=== PATIENT | female | born 1990 | race Caucasian/White ===

== ENCOUNTER → 2019-01-27 | Outpatient (REF) | payer OTHER ==
[2019-01-27 16:02] LABS: BASO % 0.6 % (0.0-1.0); EOS # 0.2 10^3/uL (0.0-0.50); EOS % 3.8 % (0.0-3.0); HEMATOCRIT 43.3 % (36.0-47.0); HEMOGLOBIN 14.5 g/dl (12.0-15.5); LYMPH # 1.8 10^3/uL (1.5-6.5); LYMPH % 36.3 % (24.0-44.0); MEAN CORPUSCULAR HEMOGLOBIN 29.4 pg (27.0-33.0); MEAN CORPUSCULAR HGB CONC 33.5 g/dl (32.0-36.5); MEAN CORPUSCULAR VOLUME 87.8 fl (80.0-96.0); MONO # 0.4 10^3/uL (0.0-0.8); MONO % 7.6 % (0.0-5.0); NEUTROPHILS # 2.6 10^3/uL (1.8-7.7); NEUTROPHILS % 51.3 % (36.0-66.0); PLATELET COUNT, AUTOMATED 287 10^3/uL (150-450); RED BLOOD COUNT 4.93 10^6/uL (4.00-5.40)
[2019-01-27 17:03] LABS: BLOOD UREA NITROGEN 9 MG/DL (7-18); CALCIUM LEVEL 9.1 MG/DL (8.5-10.1); CARBON DIOXIDE LEVEL 28 MEQ/L (21-32); CHLORIDE LEVEL 108 MEQ/L (98-107); CREATININE FOR GFR 0.75 MG/DL (0.55-1.30); FOLATE 16.5 NG/ML (>5.4); GLOMERULAR FILTRATION RATE > 60.0 (>60); GLUCOSE, FASTING 82 MG/DL (70-100); IRON (FE) 97 UG/DL (50-170); MAGNESIUM LEVEL 2.2 MG/DL (1.8-2.4); PERCENT SATURATION 27.7 % (13.2-45.0); POTASSIUM SERUM 4.7 MEQ/L (3.5-5.1); SODIUM LEVEL 140 MEQ/L (136-145); THYROID STIMULATING HORMONE 0.872 uIU/ML (0.358-3.740); TOTAL IRON BINDING CAPACITY 350 UG/DL (250-450); VITAMIN B12 LEVEL 574 PG/ML (247-911)
== END ==
LOC: M LABDRAW1 12:15
PROVIDERS: ATTEND Physician Assistant Medical
DX: R42 Dizziness and giddiness (principal)

== ENCOUNTER → 2019-02-12 | Outpatient (REF) | payer OTHER ==
[2019-02-15 15:06] LABS: HPV HYBRID CAPTURE II Negative (Negative)
== END ==
LOC: M LAB REF 18:43
PROVIDERS: ATTEND Physician Assistant Medical
DX: N93.0 Postcoital and contact bleeding (principal)
CPT/HCPCS: 87624; G0123

== ENCOUNTER → 2019-04-07 | Outpatient (REF) | payer OTHER ==
[2019-04-07 13:26] LABS: FOLLICLE STIMULATING HORMONE 7.8 mIU/mL; LUTEINIZING HORMONE 14.2 mIU/mL; PROGESTERONE 0.27 NG/ML; PROLACTIN 6.2 NG/ML
== END ==
LOC: M LABDRAW1 12:25
PROVIDERS: ATTEND Obstetrics & Gynecology
DX: N92.6 Irregular menstruation, unspecified (principal)

== ENCOUNTER 2019-04-25 08:04 | Emergency (ER) | payer OTHER ==
[~2019-04-25] VITALS: Ht 10.2 cm; Wt 68.4 kg
[2019-04-25 08:04] VITALS: BP 143/80
[2019-04-25 08:56] LABS: HCG, SERUM QUALITATIVE NEGATIVE (NEGATIVE)
[2019-04-25 09:00] LABS: BASO % 0.5 % (0.0-1.0); EOS # 0.1 10^3/uL (0.0-0.5); HEMATOCRIT 40.9 % (36.0-47.0); HEMOGLOBIN 13.9 g/dl (12.0-15.5); LYMPH # 1.5 10^3/uL (1.5-5.0); LYMPH % 18.2 % (24.0-44.0); MEAN CORPUSCULAR HEMOGLOBIN 29.4 pg (27.0-33.0); MEAN CORPUSCULAR VOLUME 86.5 fl (80.0-96.0); MONO # 0.7 10^3/uL (0.0-0.8); MONO % 8.4 % (0.0-5.0); NEUTROPHILS # 5.8 10^3/uL (1.5-8.5); NEUTROPHILS % 71.7 % (36.0-66.0); PLATELET COUNT, AUTOMATED 268 10^3/uL (150-450); RED BLOOD COUNT 4.73 10^6/uL (4.00-5.40); WHITE BLOOD COUNT 8.1 10^3/uL (4.0-10.0)
[2019-04-25 09:10] LABS: BLOOD UREA NITROGEN 12 MG/DL (7-18); CALCIUM LEVEL 8.8 MG/DL (8.5-10.1); CARBON DIOXIDE LEVEL 25 MEQ/L (21-32); CHLORIDE LEVEL 108 MEQ/L (98-107); CREATININE FOR GFR 1.17 MG/DL (0.55-1.30); GLOMERULAR FILTRATION RATE 58.6 (>60); GLUCOSE, FASTING 89 MG/DL (70-100); POTASSIUM SERUM 4.1 MEQ/L (3.5-5.1); SODIUM LEVEL 139 MEQ/L (136-145)
--- NOTE | 2019-04-25 09:35 | REP ---
CT brain: 04/25/2019. Indication: Dizziness. Diplopia. Comparison: None. Technique: Unenhanced axial CT images of the brain were obtained from skull base to vertex. Findings: There is no acute intracranial hemorrhage, acute cortical infarction, mass effect, hydrocephalus or significant fluid within the visualized paranasal sinuses/mastoid air cells. Impression: No acute intracranial process. Electronically Signed by Sam Rhodes DO 04/25/2019 09:27 A
--- NOTE | 2019-04-25 13:39 | REP ---
MRI brain: 04/25/2019. Indication: Dizziness. Diplopia. Comparison: No previous MRI studies are available for direct comparison. Technique: Multiplanar short and long TR sequences of the brain were performed without IV Gadolinium. Findings: There are no areas of restricted diffusion. There is no intracranial mass effect, hydrocephalus or significant hemorrhage. No signal abnormalities are present within the brainstem or brain parenchyma. The large intracranial flow voids are unremarkable. The midline structures, and craniocervical junction are unremarkable as well. Impression: No acute intracranial process. Unremarkable brain. Electronically Signed by Sam Rhodes DO 04/25/2019 01:30 P
== END 2019-04-25 14:20 | disposition home or self-care (01) ==
LOC: M ED 08:04
DX: H35.89 Other specified retinal disorders (principal); R29.818 Other symptoms and signs involving the nervous system

== ENCOUNTER → 2019-05-13 | Outpatient (REF) | payer OTHER ==
[2019-05-13 16:44] LABS: BASO # 0.1 10^3/uL (0.0-0.2); BASO % 1.1 % (0.0-1.0); EOS # 0.1 10^3/uL (0.0-0.5); HEMATOCRIT 43.7 % (36.0-47.0); HEMOGLOBIN 14.3 g/dl (12.0-15.5); LYMPH # 1.7 10^3/uL (1.5-5.0); LYMPH % 26.2 % (24.0-44.0); MEAN CORPUSCULAR HEMOGLOBIN 28.8 pg (27.0-33.0); MEAN CORPUSCULAR HGB CONC 32.7 g/dl (32.0-36.5); MEAN CORPUSCULAR VOLUME 88.1 fl (80.0-96.0); MONO # 0.5 10^3/uL (0.0-0.8); MONO % 7.2 % (0.0-5.0); NEUTROPHILS # 4.1 10^3/uL (1.5-8.5); NEUTROPHILS % 62.9 % (36.0-66.0); PLATELET COUNT, AUTOMATED 340 10^3/uL (150-450); RED BLOOD COUNT 4.96 10^6/uL (4.00-5.40); WHITE BLOOD COUNT 6.6 10^3/uL (4.0-10.0)
[2019-05-13 16:56] LABS: ALBUMIN 4.1 GM/DL (3.2-5.2); ALT/SGPT 23 U/L (12-78); BILIRUBIN,TOTAL 0.4 MG/DL (0.2-1.0); BLOOD UREA NITROGEN 14 MG/DL (7-18); CARBON DIOXIDE LEVEL 29 MEQ/L (21-32); CHLORIDE LEVEL 108 MEQ/L (98-107); CREATININE FOR GFR 0.97 MG/DL (0.55-1.30); GLOMERULAR FILTRATION RATE > 60.0 (>60); GLUCOSE, FASTING 94 MG/DL (70-100); POTASSIUM SERUM 4.5 MEQ/L (3.5-5.1); RHEUMATOID FACTOR QUANT < 10.0 IU/ML (<15.0); SODIUM LEVEL 140 MEQ/L (136-145)
[2019-05-13 16:57] LABS: TOTAL 25(OH) VITAMIN D 32.5 NG/ML (30.0-100.0)
[2019-05-13 19:28] LABS: ERYTHROCYTE SEDIMENTATION RATE 1 mm/hr (0-20)
[2019-05-15 14:08] LABS: ANTINUCLEAR ANTIBODIES DIRECT Negative (Negative)
== END ==
LOC: M LABDRAW1 15:47
PROVIDERS: ATTEND Psychiatry & Neurology Neurology
DX: R51 Headache (principal); R42 Dizziness and giddiness

== ENCOUNTER → 2019-07-29 | Outpatient (REF) | payer OTHER ==
[2019-07-29 19:01] LABS: FREE T4 0.91 NG/DL (0.76-1.46); THYROID STIMULATING HORMONE 0.95 uIU/ML (0.358-3.740)
[2019-07-30 12:00] LABS: THYROID PEROXIDASE ANTIBODY 332.9 U/ML (<60.0)
[2019-07-30 12:02] LABS: THYROGLOBULIN ANTIBODY 412.6 U/ML (<60.0)
== END ==
LOC: M LABDRAW1 15:24
PROVIDERS: ATTEND Nurse Practitioner Family
DX: E04.8 Other specified nontoxic goiter (principal)

== ENCOUNTER → 2019-09-30 | Outpatient (CLI) | payer OTHER ==
[2019-09-30 17:45] LABS: BASO # 0.1 10^3/uL (0.0-0.2); BASO % 1.2 % (0.0-1.0); EOS % 17.4 % (0.0-3.0); HEMATOCRIT 42.2 % (36.0-47.0); HEMOGLOBIN 13.9 g/dl (12.0-15.5); LYMPH # 2.5 10^3/uL (1.5-5.0); LYMPH % 42.5 % (24.0-44.0); MEAN CORPUSCULAR HEMOGLOBIN 28.2 pg (27.0-33.0); MEAN CORPUSCULAR HGB CONC 32.9 g/dl (32.0-36.5); MEAN CORPUSCULAR VOLUME 85.6 fl (80.0-96.0); MONO # 0.5 10^3/uL (0.0-0.8); MONO % 8.8 % (0.0-5.0); NEUTROPHILS # 1.8 10^3/uL (1.5-8.5); NEUTROPHILS % 29.9 % (36.0-66.0); PLATELET COUNT, AUTOMATED 282 10^3/uL (150-450); RED BLOOD COUNT 4.93 10^6/uL (4.00-5.40); WHITE BLOOD COUNT 5.9 10^3/uL (4.0-10.0)
[2019-09-30 17:51] LABS: BLOOD UREA NITROGEN 10 MG/DL (7-18); CARBON DIOXIDE LEVEL 27 MEQ/L (21-32); CHLORIDE LEVEL 107 MEQ/L (98-107); CREATININE FOR GFR 1.02 MG/DL (0.55-1.30); GLOMERULAR FILTRATION RATE > 60.0 (>60); GLUCOSE, FASTING 86 MG/DL (70-100); SODIUM LEVEL 141 MEQ/L (136-145)
== END ==
LOC: M WUC 11:25
PROVIDERS: ATTEND Nurse Practitioner Family
DX: R19.7 Diarrhea, unspecified (principal)

== ENCOUNTER → 2019-10-01 | Outpatient (REF) | payer OTHER | LOC: M LAB REF 16:33 | PROVIDERS: ATTEND Nurse Practitioner Family | DX: R19.7 Diarrhea, unspecified (principal) ==

== ENCOUNTER → 2019-10-20 | Outpatient (CLI) | payer OTHER ==
[~2019-10-20] MED LIST: ALBU8.5H INH; BUPR300T92 PO; FAMO20TA5 PO; MECL1TAB31 PO
--- NOTE | 2019-10-20 12:28 | REP ---
Chest x-ray: Two views. History: Shortness of breath . Comparison study: No comparison study . Findings: The lungs are well inflated and free of infiltrate. The pleural angles are sharp. The heart size is normal. Pulmonary vasculature is not increased. No significant bony abnormality is seen. Impression: Negative chest x-ray. Electronically Signed by Jae Mclaughlin MD 10/20/2019 12:20 P
[2019-10-20 12:46] LABS: BASO % 0.5 % (0.0-1.0); EOS # 0.2 10^3/uL (0.0-0.5); EOS % 3.6 % (0.0-3.0); HEMATOCRIT 40.7 % (36.0-47.0); HEMOGLOBIN 13.7 g/dl (12.0-15.5); LYMPH % 34.6 % (24.0-44.0); MEAN CORPUSCULAR HEMOGLOBIN 28.5 pg (27.0-33.0); MEAN CORPUSCULAR HGB CONC 33.7 g/dl (32.0-36.5); MEAN CORPUSCULAR VOLUME 84.8 fl (80.0-96.0); MONO # 0.4 10^3/uL (0.0-0.8); MONO % 7.4 % (0.0-5.0); NEUTROPHILS # 3.1 10^3/uL (1.5-8.5); NEUTROPHILS % 53.6 % (36.0-66.0); PLATELET COUNT, AUTOMATED 295 10^3/uL (150-450); WHITE BLOOD COUNT 5.8 10^3/uL (4.0-10.0)
[2019-10-20 13:09] LABS: ALBUMIN 3.9 GM/DL (3.2-5.2); ALT/SGPT 16 U/L (12-78); BILIRUBIN,TOTAL 0.5 MG/DL (0.2-1.0); BLOOD UREA NITROGEN 5 MG/DL (7-18); CALCIUM LEVEL 8.4 MG/DL (8.5-10.1); CARBON DIOXIDE LEVEL 26 MEQ/L (21-32); CHLORIDE LEVEL 109 MEQ/L (98-107); CREATININE FOR GFR 0.83 MG/DL (0.55-1.30); GLOMERULAR FILTRATION RATE > 60.0 (>60); GLUCOSE, FASTING 87 MG/DL (70-100); POTASSIUM SERUM 3.9 MEQ/L (3.5-5.1); SODIUM LEVEL 142 MEQ/L (136-145); TOTAL PROTEIN 6.9 GM/DL (6.4-8.2)
== END ==
LOC: M WUC 11:19
PROVIDERS: ATTEND Nurse Practitioner Family
DX: R06.02 Shortness of breath (principal)

== ENCOUNTER 2019-10-24 13:11 | Emergency (ER) | payer OTHER ==
[~2019-10-24] VITALS: Ht 162.6 cm; Wt 68.2 kg
[2019-10-24] MEDS ORDERED: MECLIZINE 25 MG TABLET PO ONE (13:30)
[2019-10-24] MEDS ORDERED: BUPR300T92 PO (14:02)
[2019-10-24] MEDS ORDERED: ALBU8.5H INH (14:02)
[2019-10-24] MEDS ORDERED: FAMO20TA5 PO (14:02)
[2019-10-24 14:13] LABS: HEMATOCRIT 38.3 % (36.0-47.0); HEMOGLOBIN 13.2 g/dl (12.0-15.5); MEAN CORPUSCULAR HEMOGLOBIN 28.6 pg (27.0-33.0); MEAN CORPUSCULAR HGB CONC 34.5 g/dl (32.0-36.5); MEAN CORPUSCULAR VOLUME 82.9 fl (80.0-96.0); PLATELET COUNT, AUTOMATED 269 10^3/uL (150-450); RED BLOOD COUNT 4.62 10^6/uL (4.00-5.40); WHITE BLOOD COUNT 8.1 10^3/uL (4.0-10.0)
[2019-10-24 14:41] LABS: BLOOD UREA NITROGEN 6 MG/DL (7-18); CALCIUM LEVEL 8.6 MG/DL (8.5-10.1); CARBON DIOXIDE LEVEL 24 MEQ/L (21-32); CHLORIDE LEVEL 109 MEQ/L (98-107); CREATININE FOR GFR 0.78 MG/DL (0.55-1.30); GLOMERULAR FILTRATION RATE > 60.0 (>60); GLUCOSE, FASTING 110 MG/DL (70-100); POTASSIUM SERUM 4.3 MEQ/L (3.5-5.1); SODIUM LEVEL 137 MEQ/L (136-145)
[2019-10-24 14:48] LABS: HCG, SERUM QUALITATIVE NEGATIVE (NEGATIVE)
[2019-10-24 15:00] VITALS: BP 130/76
[2019-10-24] MEDS ORDERED: MECL1TAB31 PO (15:00)
== END 2019-10-24 15:10 | disposition home or self-care (01) ==
LOC: EDBD 13:11 → M ED 13:11 → EDSEX 13:11 → M ED 15:10
DX: R42 Dizziness and giddiness (principal)

== ENCOUNTER → 2019-12-04 | Outpatient (CLI) | payer OTHER | LOC: M LAB 12:43 | PROVIDERS: ATTEND Internal Medicine Gastroenterology | DX: R19.7 Diarrhea, unspecified (principal) ==

== ENCOUNTER → 2019-12-10 | Outpatient (REF) | payer OTHER ==
[2019-12-16 20:07] LABS: CALPROTECTIN STOOL <16 ug/g (0-120); PANCREATIC ELASTASE STOOL 494 (>200)
== END ==
LOC: M LAB REF 11:26
PROVIDERS: ATTEND Internal Medicine Gastroenterology
DX: R19.7 Diarrhea, unspecified (principal)

== ENCOUNTER → 2019-12-18 | Outpatient (CLI) | payer OTHER ==
[~2019-12-18] MED LIST changes: +E-Z-GAS II EFFERVESCENT PACKET (SODIUM BICARB./CITRIC ACID/SIMETHICONE) As Ordered ONE; +E-Z-HD 98% w/w 340GM SUSP BTL As Ordered ONE; +E-Z-PAQUE 96% w/w SUSP 176GM BTL As Ordered ONE
--- NOTE | 2019-12-22 10:08 | REP ---
Examination Requested: SBFT Reason For Exam: Diarrhea Small Bowel Follow Through The procedure was performed by SARBJIT Arreola, under the direct supervision of Dr. Celaya. The images were reviewed with Dr. Celaya. The hospice entrance attendant film shows no organomegaly or pathological masses. The intestinal gas pattern appears normal. The barium was administered and the barium column was followed through the small bowel to the level of the terminal ileum. Small bowel transit time was approximately 20 minutes. During fluoroscopy gentle palpation shows all loops are freely mobile and pliable. There are no fixed or angulated loops. The small bowel mucosal pattern is normal in course and caliber. There is no transition to suggest a partial small-bowel obstruction. Spot filming of the terminal ileum shows it to be unremarkable. The appendix is visualized. Impression: 1. Small bowel transit time of approximately 20 minutes, otherwise unremarkable. 0.7 minutes of fluoroscopy time was utilized for this procedure. Some fluoroscopic images are performed with last image hold technology. These images require no additional radiation. Reviewed by SARBJIT Robison 12/18/2019 03:39 P Electronically Signed by Diego Celaya MD 12/22/2019 09:59 A
== END ==
LOC: M RAD 08:30
PROVIDERS: ATTEND Internal Medicine Gastroenterology
DX: R19.7 Diarrhea, unspecified (principal)

== ENCOUNTER → 2020-03-23 | Outpatient (CLI) | payer OTHER ==
[~2020-03-23] MED LIST changes: -E-Z-GAS II EFFERVESCENT PACKET (SODIUM BICARB./CITRIC ACID/SIMETHICONE) As Ordered ONE; -E-Z-HD 98% w/w 340GM SUSP BTL As Ordered ONE; -E-Z-PAQUE 96% w/w SUSP 176GM BTL As Ordered ONE
[2020-03-23 16:02] LABS: BASO # 0.1 10^3/uL (0.0-0.2); EOS # 0.2 10^3/uL (0.0-0.5); EOS % 2.9 % (0.0-3.0); HEMATOCRIT 41.2 % (36.0-47.0); HEMOGLOBIN 13.2 g/dl (12.0-15.5); LYMPH # 2.7 10^3/uL (1.5-5.0); LYMPH % 52.1 % (24.0-44.0); MEAN CORPUSCULAR VOLUME 87.3 fl (80.0-96.0); MONO # 0.4 10^3/uL (0.0-0.8); MONO % 8.1 % (0.0-5.0); NEUTROPHILS # 1.9 10^3/uL (1.5-8.5); NEUTROPHILS % 35.9 % (36.0-66.0); PLATELET COUNT, AUTOMATED 313 10^3/uL (150-450); RED BLOOD COUNT 4.72 10^6/uL (4.00-5.40); WHITE BLOOD COUNT 5.2 10^3/uL (4.0-10.0)
[2020-03-23 16:35] LABS: ALT/SGPT 17 U/L (12-78); BILIRUBIN,TOTAL 0.4 MG/DL (0.2-1.0); BLOOD UREA NITROGEN 8 MG/DL (7-18); CALCIUM LEVEL 8.9 MG/DL (8.5-10.1); CARBON DIOXIDE LEVEL 27 MEQ/L (21-32); CHLORIDE LEVEL 109 MEQ/L (98-107); CREATININE FOR GFR 0.95 MG/DL (0.55-1.30); ERYTHROCYTE SEDIMENTATION RATE 3 mm/hr (0-20); GLOMERULAR FILTRATION RATE > 60.0 (>60); GLUCOSE, FASTING 102 MG/DL (70-100); POTASSIUM SERUM 3.8 MEQ/L (3.5-5.1); RHEUMATOID FACTOR QUANT < 10.0 IU/ML (<15.0); SODIUM LEVEL 141 MEQ/L (136-145); THYROGLOBULIN ANTIBODY 224.3 U/ML (<60.0); THYROID PEROXIDASE ANTIBODY 296.9 U/ML (<60.0); THYROXINE (T4) 8.5 UG/DL (4.5-12.0); TOTAL PROTEIN 7.3 GM/DL (6.4-8.2)
[2020-03-30 19:06] LABS: ANTINUCLEAR ANTIBODIES DIRECT Negative (Negative); IGE RECEPTOR ABY 1 <2.3 (<10)
== END ==
LOC: M WUC 11:42
PROVIDERS: ATTEND Allergy & Immunology Allergy
DX: L50.1 Idiopathic urticaria (principal)

== ENCOUNTER → 2020-05-01 | Outpatient (CLI) | payer OTHER ==
[~2020-05-01] MED LIST changes: +5-HT1CAP PO; +APPLTAB3 PO; +AZEL1SPR3; +BUPR450T; +D-3-50003 PO; +FISH1000 PO; +FLAX1CAP5 PO; +IRON15CH PO; +LEVOTAB10; +LIONS MANE PO; +MAGN400C PO; +MOOD400T PO; +MULTTAB62 PO; +SELENIUM PO; +TRAZ-252; +VITA100T98 PO
== END ==
LOC: M LABSMTC 08:08
PROVIDERS: ATTEND Anesthesiology
DX: Z01.812 Encounter for preprocedural laboratory examination (principal); Z20.828 Contact with and (suspected) exposure to other viral communicable diseases

== ENCOUNTER 2020-05-04 11:30 | Day surgery (SDC) | payer OTHER ==
[~2020-05-04] VITALS: Ht 162.6 cm; Wt 70.3 kg
[~2020-05-04 11:30] MED LIST changes: +NS 1,000 ML IV ONE
[2020-05-04] MEDS ORDERED: propofoL 500 MG/50 ML VIAL As Ordered ONE (11:55)
[2020-05-04] MEDS ORDERED: fentaNYL 100 MCG/2 ML INJECTION (J3010) As Ordered ONE (12:00)
[2020-05-04] MEDS ORDERED: LIDOCAINE 2% 100MG/5ML SDV (FOR ANES.) As Ordered ONE (12:01)
--- NOTE | 2020-05-04 13:18 | ROOR ---
Patient Name: Rajwinder Espinoza Procedure Date: 05/04/2020 1:03 PM Date of : 1990 Age: 30 Room: [facility] Gender: Female Note Status: Finalized Procedure: Upper GI endoscopy Indications: Suspected irritable bowel syndrome, Endoscopy to assess diarrhea in patient suspected of having disease of the small-bowel Providers: Jake QUINONEZ MD Referring MD: Pastor Napier Requesting Provider: Medicines: Monitored Anesthesia Care Complications: No immediate complications. Procedure: Pre-Anesthesia Assessment: - The heart rate, respiratory rate, oxygen saturations, blood pressure, adequacy of pulmonary ventilation, and response to care were monitored throughout the procedure. The Endoscope was introduced through the mouth, and advanced to the third part of duodenum. The upper GI endoscopy was accomplished without difficulty. The patient tolerated the procedure well. Findings: The esophagus was normal. The stomach was normal. The examined duodenum was normal. Biopsies for histology were taken with a cold forceps in the first portion of the duodenum, in the second portion of the duodenum and in the third portion of the duodenum for evaluation of celiac disease. Impression: - Normal esophagus. - Normal stomach. - Normal examined duodenum. - Biopsies were taken with a cold forceps for evaluation of celiac disease. Recommendation: - Telephone endoscopist for pathology results in 2 weeks. - Lactose free diet. - Observe patient's clinical course. Procedure Code(s): --- Professional --- 08227, Esophagogastroduodenoscopy, flexible, transoral; with biopsy, single or multiple Diagnosis Code(s): --- Professional --- R19.7, Diarrhea, unspecified CPT copyright 2019 [employer]. All rights reserved. The codes documented in this report are preliminary and upon draft roller picker review may be revised to meet current compliance requirements. Jake Quinonze MD Jake QUINONEZ MD 05/04/2020 1:18:31 PM Electronically signed by Jake QUINONEZ MD Number of Addenda: 0 Note Initiated On: 05/04/2020 1:03 PM Estimated Blood Loss: Estimated blood loss: none.
--- NOTE | 2020-05-04 13:34 | ROOR ---
Patient Name: Rajwinder Espinoza Procedure Date: 05/04/2020 1:04 PM Date of : 1990 Age: 30 Room: [facility] Gender: Female Note Status: Finalized Procedure: Colonoscopy Indications: Suspected irritable bowel syndrome, Irritable bowel syndrome with diarrhea, Diarrhea Providers: Jake QUINONEZ MD Referring MD: Pastor Napier Requesting Provider: Medicines: Monitored Anesthesia Care Complications: No immediate complications. Procedure: Pre-Anesthesia Assessment: - The heart rate, respiratory rate, oxygen saturations, blood pressure, adequacy of pulmonary ventilation, and response to care were monitored throughout the procedure. The Colonoscope was introduced through the anus and advanced to 10 cm into the ileum. The colonoscopy was performed without difficulty. The patient tolerated the procedure well. The quality of the bowel preparation was good. Findings: The perianal and digital rectal examinations were normal. Retroflexion in the right colon was performed. The colon (entire examined portion) appeared normal. The terminal ileum appeared normal. Biopsies for histology were taken with a cold forceps for evaluation of microscopic colitis. Small Internal Hemorrhoids. Impression: - Small Internal Hemorrhoids. - The entire colon is normal. - The examined portion of the ileum was normal. - Biopsies were taken with a cold forceps for evaluation of microscopic colitis. Recommendation: - Continue present medications. - Await pathology results. - Telephone endoscopist for pathology results in 2 weeks. - Lactose free diet. - Use fiber, for example Citrucel, Fibercon, Konsyl or Metamucil. Procedure Code(s): --- Professional --- 84644, Colonoscopy, flexible; with biopsy, single or multiple Diagnosis Code(s): --- Professional --- R19.7, Diarrhea, unspecified K58.0, Irritable bowel syndrome with diarrhea CPT copyright 2019 [employer]. All rights reserved. The codes documented in this report are preliminary and upon forge hand review may be revised to meet current compliance requirements. Jake Quinonez MD Jake QUINONEZ MD 05/04/2020 1:33:23 PM Electronically signed by Jake QUINONEZ MD Number of Addenda: 0 Note Initiated On: 05/04/2020 1:04 PM Estimated Blood Loss: Estimated blood loss: none.
[2020-05-04 13:50] VITALS: BP 121/61
== END 2020-05-04 14:05 | disposition home or self-care (01) ==
LOC: M OPP 11:30
PROVIDERS: ATTEND Internal Medicine Gastroenterology
DX: K58.0 Irritable bowel syndrome with diarrhea (principal); R19.7 Diarrhea, unspecified; K64.8 Other hemorrhoids; Z79.899 Other long term (current) drug therapy
CPT/HCPCS: 43239; 45380; 88305; J3010

== ENCOUNTER → 2020-10-28 | Outpatient (CLI) | payer OTHER ==
[~2020-10-28] MED LIST changes: -NS 1,000 ML IV ONE
[2020-10-28 16:48] LABS: BLOOD UREA NITROGEN 8 MG/DL (7-18); CALCIUM LEVEL 9.1 MG/DL (8.5-10.1); CARBON DIOXIDE LEVEL 25 MEQ/L (21-32); CHLORIDE LEVEL 106 MEQ/L (98-107); CREATININE FOR GFR 1.02 MG/DL (0.55-1.30); FREE T4 1.17 NG/DL (0.76-1.46); GLOMERULAR FILTRATION RATE > 60.0 (>60); GLUCOSE, FASTING 108 MG/DL (70-100); MAGNESIUM LEVEL 2.1 MG/DL (1.8-2.4); POTASSIUM SERUM 4.1 MEQ/L (3.5-5.1); SODIUM LEVEL 140 MEQ/L (136-145)
== END ==
LOC: M WUC 14:15
PROVIDERS: ATTEND Nurse Practitioner Family
DX: R00.2 Palpitations (principal)

== ENCOUNTER → 2021-06-20 | Outpatient (CLI) | payer OTHER ==
[2021-06-20 16:04] LABS: FREE T4 0.88 NG/DL (0.76-1.46); THYROID STIMULATING HORMONE 2.8 uIU/ML (0.358-3.740)
[2021-06-20 16:06] LABS: PROLACTIN 7.3 NG/ML
== END ==
LOC: M WUC 10:50
PROVIDERS: ATTEND Psychiatry & Neurology Neurology
DX: D49.7 Neoplasm of unspecified behavior of endocrine glands and other parts of nervous system (principal)

== ENCOUNTER → 2021-06-27 | Outpatient (CLI) | payer OTHER ==
[2021-06-27 16:11] LABS: BASO # 0.1 10^3/uL (0.0-0.2); EOS # 0.2 10^3/uL (0.0-0.5); EOS % 3.9 % (0.0-3.0); HEMATOCRIT 36.8 % (36.0-47.0); HEMOGLOBIN 11.3 g/dl (12.0-15.5); LYMPH # 2.1 10^3/uL (1.5-5.0); LYMPH % 43.4 % (24.0-44.0); MEAN CORPUSCULAR HEMOGLOBIN 23.6 pg (27.0-33.0); MEAN CORPUSCULAR HGB CONC 30.7 g/dl (32.0-36.5); MONO # 0.5 10^3/uL (0.0-0.8); MONO % 10.2 % (2.0-8.0); NEUTROPHILS % 41.3 % (36.0-66.0); PLATELET COUNT, AUTOMATED 338 10^3/uL (150-450); RED BLOOD COUNT 4.78 10^6/uL (4.00-5.40); WHITE BLOOD COUNT 4.9 10^3/uL (4.0-10.0)
[2021-06-27 16:27] LABS: ALBUMIN 3.8 GM/DL (3.2-5.2); ALT/SGPT 26 U/L (12-78); BILIRUBIN,DIRECT 0.1 MG/DL (0.0-0.2); BILIRUBIN,TOTAL 0.2 MG/DL (0.2-1.0)
[2021-06-28 08:42] LABS: BLOOD UREA NITROGEN 10 MG/DL (7-18); CALCIUM LEVEL 8.9 MG/DL (8.5-10.1); CARBON DIOXIDE LEVEL 28 MEQ/L (21-32); CHLORIDE LEVEL 108 MEQ/L (98-107); GLOMERULAR FILTRATION RATE > 60.0 (>60); GLUCOSE, FASTING 84 MG/DL (70-100); PHOSPHORUS LEVEL 3.8 MG/DL (2.5-4.9); POTASSIUM SERUM 3.9 MEQ/L (3.5-5.1); SODIUM LEVEL 142 MEQ/L (136-145)
== END ==
LOC: M WUC 11:35
PROVIDERS: ATTEND Podiatrist Foot & Ankle Surgery
DX: B35.1 Tinea unguium (principal)